=== PATIENT | female | born 1985 | race Caucasian/White ===

== ENCOUNTER 2018-07-01 09:05 | Day surgery (SDC) | payer BC ==
[~2018-07-01 09:05] MED LIST: Albuterol 0.083% 2.5 MG/3 ML Neb Soln NEB ONE; Lactated Ringers 1,000 ML IV SCH; Lidocaine 1% 6 ML ONE; Lidocaine 1%/Sod Bicarbonate in NS 8.4% 1 ML Syringe IDERM PRN; Propofol 200 MG/20 ML SDV ONE; Sodium Chloride 0.9% 10 ML Syringe FLUSH PRN; fentaNYL 100 MCG/2 ML SDV ONE
--- NOTE | 2018-07-01 09:56 | PCM.PREANE ---
Preanesthetic Assessment - Anesthesia/Transfusion/Family Hx Anesthesia History: No Prior Anesthesia Family History of Anesthesia Reaction: No Transfusion History: No Prior Transfusion(s) - Review of Systems General: No Symptoms Pulmonary: No Symptoms Cardiovascular: Dyspnea on Exertion Gastrointestinal: No Symptoms Neurological: Seizure (May 2017) Other: Reports: Thyroid Problems (hypothyroid) - Physical Assessment NPO Status Date: 06/30/18 NPO Status Time: 00:00 Pulse: 88 O2 Sat by Pulse Oximetry: 95 Respiratory Rate: 19 Blood Pressure: 139/70 Temperature: 37.5 C Height: 1.65 m Weight: 123.1 kg ASA Class: 3 Mental Status: Alert & Oriented x3 Airway Class: Mallampati = 3 Dentition: Reports: Normal Dentition Thyro-Mental Finger Breadths: 2 Mouth Opening Finger Breadths: 2 ROM/Head Extension: Full Lungs: Clear to Auscultation, Normal Respiratory Effort Cardiovascular: Regular Rate, Regular Rhythm, No Murmurs - Allergies Allergies/Adverse Reactions: Allergies Allergy/AdvReac Type Severity Reaction Status Date / Time ondansetron [From Zofran] Allergy Headache Verified 06/30/18 12:27 strawberry Allergy Anaphylactic Verified 06/30/18 12:27 Shock - Blood Blood Available: No Product(s) Available: None - Anesthesia Plan Pre-Op Medication Ordered: None - Acknowledgements Anesthesia Type Planned: MAC Pt an Appropriate Candidate for the Planned Anesthesia: Yes Alternatives and Risks of Anesthesia Discussed w Pt/Guardian: Yes Pt/Guardian Understands and Agrees with Anesthesia Plan: Yes PreAnesthesia Questionnaire HEENT History: Reports: None Cardiovascular History: Reports: Hypertension, Other (See Below) Other Cardiovascular History: Fluid retention, hypokalemia, hypoalbuminemia Respiratory History: Reports: Asthma, Sleep Apnea, Other (See Below) Other Respiratory History: Patient uses CPAP Gastrointestinal History: Reports: Chronic Constipation, GERD, Other (See Below) Other Gastrointestinal History: Abdominal wall mass Genitourinary History: Reports: Renal Calculus (in the past), Other (See Below) Other Genitourinary History: Proteinuria Other OB/BYN History: Amenorrhea, decreased libido Musculoskeletal History: Reports: None Neurological History: Reports: Other (See Below) Other Neuro History: Arnold-Chiari malformation (type I), Posterior reversible encephalopathy syndrome (PRES), Empty sella Psychiatric History: Reports: Anxiety, Depression Endocrine/Metabolic History: Reports: Hypothyroidism, Vitamin D Deficiency Other Endocrine/Metabolic History: Generalized weakness, fatigue Hematologic History: Reports: Anemia Other Immunologic History: CREST syndrome (Calcinosis, Raynaud's phenomenon, Esophageal dysfunction, Sclerodactyly,Telangiectasia) Oncologic (Cancer) History: Reports: None Dermatologic History: Reports: Other (See Below) Other Dermatologic History: Folliculitis - Past Surgical History Head Surgeries/Procedures: Reports: None HEENT Surgical History: Reports: Adenoidectomy, Naso-Sinus Surgery, Tonsillectomy Cardiovascular Surgical History: Reports: None Respiratory Surgical History: Reports: None GI Surgical History: Reports: None Female Surgical History: Reports: Other (See Below) Other Female Surgeries/Procedures: Laparoscopic ovarian cystectomy Endocrine Surgical History: Reports: None Neurological Surgical History: Reports: None Musculoskeletal Surgical History: Reports: Arthroscopic Knee - SUBSTANCE USE Smoking Status *Q: Never Smoker Tobacco Use Within Last Twelve Months: No Second Hand Smoke Exposure: No Days Per Week of Alcohol Use: 1 Number of Drinks Per Day: 0 Total Drinks Per Week: 0 Recreational Drug Use History: No - HOME MEDS Home Medications: Home Meds Albuterol Sulfate [Proair Respiclick] 1 - 2 puff IH Q4H PRN 06/30/18 [History] Albuterol [Proventil Neb Soln] 2.5 mg INH Q4H PRN 06/30/18 [History] Aspirin 325 mg PO DAILY 06/30/18 [History] Benzaclin 1 applic TOP BEDTIME 06/30/18 [History] Cholecalciferol (Vitamin D3) [Vitamin D3] 5,000 unit PO DAILY 06/30/18 [History] Diltiazem HCl [Cardizem Cd] 300 mg PO DAILY 06/30/18 [History] Ergocalciferol (Vitamin D2) [Vitamin D2] 50,000 unit PO ASDIRECTED 06/30/18 [ History] FLUoxetine HCl [Prozac] 40 mg PO DAILY 06/30/18 [History] Fluticasone/Salmeterol [Advair 250-50 Diskus] 1 puff IH BID 06/30/18 [History] Levothyroxine [Synthroid] 88 mcg PO DAILY 06/30/18 [History] Lisinopril 20 mg PO DAILY 06/30/18 [History] Montelukast [Singulair] 10 mg PO BEDTIME 06/30/18 [History] Mupirocin Oint [Bactroban Oint] 1 applic TOP DAILY 06/30/18 [History] Mycophenolate Mofetil [Cellcept] 500 mg PO BID 06/30/18 [History] Omeprazole Magnesium [Prilosec Otc] 40 mg PO DAILY 06/30/18 [History] Polyethylene Glycol 3350 [MiraLAX] 17 gm PO DAILY PRN 06/30/18 [History] Potassium Chloride 20 - 40 meq PO DAILY 06/30/18 [History] atorvaSTATin Calcium [Lipitor] 20 mg PO DAILY 06/30/18 [History] hydrALAZINE [Apresoline] 25 mg PO BID 06/30/18 [History] valACYclovir [Valtrex] 1,000 mg PO BID 06/30/18 [History] - CURRENT (IN HOUSE) MEDS Current Meds: Current Medications Lactated Ringer's (Ringers, Lactated) 1,000 mls @ 125 mls/hr IV ASDIRECTED CHARLENE Stop: 07/01/18 23:00 Lidocaine/Sodium Bicarbonate (Buffered Lidocaine 1% In Ns 8.4%) 0.25 ml IDERM ONETIME PRN PRN Reason: Prior to IV Start Stop: 07/01/18 18:00 Sodium Chloride (Saline Flush) 10 ml FLUSH ASDIRECTED PRN PRN Reason: Keep Vein Open Stop: 07/01/18 18:00 Discontinued Medications Albuterol (Proventil Neb Soln) 2.5 mg NEB ONETIME ONE Stop: 07/01/18 08:01 Fentanyl (Sublimaze) Confirm Administered Dose 100 mcg .ROUTE .STK-MED ONE Stop: 07/01/18 07:17 Lidocaine HCl (Xylocaine-Mpf 1%) Confirm Administered Dose 6 mls @ as directed .ROUTE .STK-MED ONE Stop: 07/01/18 07:17 Propofol (Diprivan 20 Ml) Confirm Administered Dose 200 mg .ROUTE .STK-MED ONE Stop: 07/01/18 07:17
[2018-07-01] MEDS ORDERED: Midazolam 1 MG/ML 2 ML SDV ONE ×2 (10:34→11:24)
[2018-07-01] MEDS ORDERED: Lactated Ringers 1,000 ML ONE (11:26)
[2018-07-01] MEDS ORDERED: Propofol 200 MG/20 ML SDV ONE ×3 (11:37→12:11)
[2018-07-01] MEDS ORDERED: fentaNYL 100 MCG/2 ML SDV ONE (11:42)
--- NOTE | 2018-07-01 12:31 | PCM48HPAN ---
Post Anesthesia Note - EVALUATION WITHIN 48HRS OF ANESTHETIC Vital Signs in Normal Range: Yes Patient Participated in Evaluation: Yes Respiratory Function Stable: Yes Airway Patent: Yes Cardiovascular Function Stable: Yes Hydration Status Stable: Yes Pain Control Satisfactory: Yes Nausea and Vomiting Control Satisfactory: Yes Mental Status Recovered: Yes
--- NOTE | 2018-07-01 12:35 | PCM.OPNOTE ---
- General Post-Op/Procedure Note Date of Surgery/Procedure: 07/01/18 Operative Procedure(s): EGD with biopsy and colonoscopy with biopsy Findings: Esophagitis, gastritis and polypoid colon mucosa Pre Op Diagnosis: anemia Post-Op Diagnosis: same Anesthesia Technique: REINA Primary Surgeon: Ashley Quinones Anesthesia Provider: Elva Delatorre Pathology: 1. gastric antrum for H. pylori 2. GE junction biopsies in 4 quadrants 3. Sigmoid colon mucosa 4. Rectal mucosa Fluid Replacement, Intraop: 1,400 EBL in mLs: 0 Complications: none apparent Condition: Good
--- NOTE | 2018-07-01 12:47 | PCM.PRNOTE ---
- Free Text/Narrative Note: Operative Report Date of Procedure: July 01, 2018 Pre Op Diagnosis: . Anemia Post-Op Diagnosis: . Same Operative Procedures: 1. EGD with biopsy 2. Colonoscopy to the cecum with biopsy Primary Surgeon: Ashley Quinones MD Anesthesia Provider: Margret Joy CRNA Anesthesia Technique: MAC IV Fluid Replacement, Intraop: 1400 cc crystalloid Output, Urine Amount: 0cc EBL in mLs: 0cc Findings: Esophagitis with gastritis, mildly irregular GE junction. Polypoid appearing mucosa in the sigmoid colon and rectum Specimens: 1. gastric antrum for H. pylori 2. GE junction biopsies in 4 quadrants 3. Sigmoid colon mucosa 4. Rectal mucosa Drain/Tubes: None Indication: The patient is a 33-year-old lady who presented to the clinic with anemia. The patient was consented for a diagnostic EGD and colonoscopy. Risks of bleeding, and perforation were discussed, and the patient agreed to the risks and wished to proceed. Description of the procedure: The patient was taken back to the endoscopy suite, and placed in the left lateral decubitus position. Local anesthetic to the oropharynx was administered , and a bite block was placed. The patient was sedated with MAC anesthesia. The Olympus video endoscope was inserted into the oropharynx and guided under direct vision into the esophagus, stomach, and duodenum. The gastric antrum was inspected and cold biopsy forceps were used to take tissue samples for H. pylori. The duodenal bulb was unremarkable, the scope would not easily pass into the second portion of the duodenum. The scope was withdrawn to the stomach and retroflexed. There was some increased fluid, but no food or secretions in the upper gastrointestinal tract. The mucosa appeared somewhat pale. No erosions or ulcers were noted. The gastric antrum was erythematous and mildly edematous consistent with gastritis. The scope was withdrawn to the esophagus. A this point we did not note a hiatal hernia. The Z-line and gastroesophageal junction were located at about 38 cm. . Questionable Barretts esophagus changes were noted as the GE junction was mildly irregular. This could also be consistent with esophagitis. Cold biopsy forceps. A used to take biopsies of the GE junction in 4 quadrants. The endoscope was then withdrawn. Next, anorectal examination was performed. No lesions, masses or hemorrhoids were noted externally or on palpation. The scope was placed into the rectum and advanced to cecum. Upon reaching the cecum, and the patients cecum was entered. There was minimal tortuosity of the colon. The ileocecal valve was well visualized, however and the appendiceal orifice was not identified from poor prep, as well as patient anatomy. Despite washing and suctioning, the cecum could not be completely cleared. At this point, the scope was slowly withdrawn, paying attention to the mucosa. The patient had adequate bowel prep , 80 % of the mucosa was visible. A large stool ball was noted in the descending colon. There were areas of polypoid mucosa in the sigmoid colon and rectum. Biopsies were taken with cold biopsy forceps. There was no evidence of bleeding or stigmata of recent bleeding. In the rectum, scope was retroflexed and some hemorrhoidal tissue was noted. The scope was placed back in the lumen and excess air was aspirated. The scope was removed. The patient tolerated the procedure very well. Complications: None apparent Condition: The patient was transported to PACU in stable condition. Ashley Quinones MD General Surgery
== END 2018-07-01 13:40 | disposition home or self-care (01) ==
LOC: JD.SDS 09:05
PROVIDERS: ATTEND Surgery
DX: D64.9 Anemia, unspecified (principal); K29.50 Unspecified chronic gastritis without bleeding; K20.9 Esophagitis, unspecified; K64.9 Unspecified hemorrhoids; I11.0 Hypertensive heart disease with heart failure; I50.9 Heart failure, unspecified; J44.9 Chronic obstructive pulmonary disease, unspecified; F32.9 Major depressive disorder, single episode, unspecified; K21.9 Gastro-esophageal reflux disease without esophagitis; E03.9 Hypothyroidism, unspecified; G47.33 Obstructive sleep apnea (adult) (pediatric); Z99.89 Dependence on other enabling machines and devices; G93.5 Compression of brain; Z86.73 Personal history of transient ischemic attack (TIA), and cerebral infarction without residual deficits; Z79.51 Long term (current) use of inhaled steroids; Z79.82 Long term (current) use of aspirin; Z79.899 Other long term (current) drug therapy; Z91.018 Allergy to other foods; Z88.8 Allergy status to other drugs, medicaments and biological substances
CPT/HCPCS: 43239; 45380; 94640; J2250; J2704; J3010; J7120; J2001

== ENCOUNTER 2020-05-02 10:31 | Emergency (ER) | payer BC ==
[2020-05-02] MEDS ORDERED: Sodium Chloride 0.9% 10 ML Syringe FLUSH PRN (10:40)
[2020-05-02] MEDS ORDERED: Sodium Chloride 0.9% 1,000 ML IV SCH (10:45)
--- NOTE | 2020-05-02 12:20 | EDM.PDOC ---
ED HPI GENERAL MEDICAL PROBLEM - General Chief Complaint: Cardiovascular Problem Stated Complaint: [facility] Time Seen by Provider: 05/02/20 10:35 Source of Information: Reports: Patient, EMS History Limitations: Reports: No Limitations - History of Present Illness INITIAL COMMENTS - FREE TEXT/NARRATIVE: The patient presents by [facility] for runs of V-tach. The patient was COVID positive on 04/08/20. She got worse on 04/11/20 and was seen at [facility] and she was sent to [facility] for acute hypoxic respiratory failure and acute CHF. Her room air sat was 83%. She had pneumonia and a small PE. She was started on eliquis. She was treated with remdesiver, dexamethasone and convalescent plasma. The did an echo and it showed an EF of 20-24%. She was discharged on the with a life vest defibrilator. She said the past few days it has alerted her that it was going to shock her. It happened a couple times yesterday and 4 to 5 times this morning. She had a 7 second run of V-tach when she first got here. Her vest was off and before we could do anything she converted. During the time that happened her BP went down into the 70s. She h as no fever, chills, cough, chest pain, shortness of breath, abdominal pain, nausea or vomiting. She has generalized weakness. Onset: Gradual Duration: Day(s): Severity: Moderate Improves with: Reports: None Worsens with: Reports: None Associated Symptoms: Reports: No Other Symptoms Treatments GAS TREATER: Reports: IV/IO - Related Data Allergies Allergy/AdvReac Type Severity Reaction Status Date / Time fentanyl Allergy Severe Itching Verified 05/02/20 10:58 strawberry Allergy Severe Anaphylactic Verified 05/02/20 10:58 Shock ondansetron [From Zofran] AdvReac Severe Headache Verified 05/02/20 10:58 Home Meds: Home Meds Albuterol Sulfate [Proair Respiclick] 1 - 2 puff IH Q4H PRN 06/30/18 [History] Albuterol [Proventil Neb Soln] 3 ml INH Q4H PRN 06/30/18 [History] Ergocalciferol (Vitamin D2) [Vitamin D2] 50,000 unit PO MOTH 06/30/18 [History] Levothyroxine [Synthroid] 88 mcg PO DAILY 06/30/18 [History] Lisinopril 10 mg PO DAILY 06/30/18 [History] Montelukast [Singulair] 10 mg PO BEDTIME 06/30/18 [History] Potassium Chloride 10 meq PO DAILY 06/30/18 [History] hydrALAZINE [Apresoline] 25 mg PO BID 06/30/18 [History] Apixaban [Eliquis] 5 mg PO BID 05/02/20 [History] Cyclobenzaprine [Flexeril] 10 mg PO TID PRN 05/02/20 [History] Furosemide [Lasix] 40 mg PO DAILY 05/02/20 [History] Pantoprazole [ProTONIX] 40 mg PO BID 05/02/20 [History] Spironolactone [Aldactone] 25 mg PO DAILY 05/02/20 [History] Sucralfate [Carafate] 1 gm PO BEDTIME 05/02/20 [History] amLODIPine [Norvasc] 5 mg PO DAILY 05/02/20 [History] atorvaSTATin [Lipitor] 20 mg PO BEDTIME 05/02/20 [History] carvediloL [Carvedilol] 3.125 mg PO BID 05/02/20 [History] Past Medical History HEENT History: Reports: None Cardiovascular History: Reports: Heart Failure, Hypertension Other Cardiovascular History: Fluid retention, hypokalemia, hypoalbuminemia Respiratory History: Reports: Asthma, Sleep Apnea, Other (See Below) Other Respiratory History: pulmonary hypertensionb Gastrointestinal History: Reports: Chronic Constipation, GERD Other Gastrointestinal History: Abdominal wall mass Genitourinary History: Reports: Renal Calculus Other Genitourinary History: Proteinuria Other GLOBAL MARKETING SPECIALIST History: Amenorrhea, decreased libido Musculoskeletal History: Reports: None Neurological History: Reports: CVA, Other (See Below) Other Neuro History: Arnold-Chiari malformation (type I), Posterior reversible encephalopathy syndrome (PRES), Empty sella Psychiatric History: Reports: Anxiety, Depression Endocrine/Metabolic History: Reports: Hypothyroidism, Vitamin D Deficiency Other Endocrine/Metabolic History: Generalized weakness, fatigue Hematologic History: Reports: Iron Deficiency Immunologic History: Reports: Other (See Below) Other Immunologic History: CREST syndrome (Calcinosis, Raynaud's phenomenon, Esophageal dysfunction, Sclerodactyly,Telangiectasia) Oncologic (Cancer) History: Reports: None Dermatologic History: Reports: Scleroderma Other Dermatologic History: Folliculitis - Infectious Disease History Infectious Disease History: Reports: Novel Coronavirus - Past Surgical History HEENT Surgical History: Reports: Adenoidectomy, Naso-Sinus Surgery, Tonsillectomy Cardiovascular Surgical History: Reports: None Female Surgical History: Reports: Other (See Below) Other Female Surgeries/Procedures: Laparoscopic ovarian cystectomy Musculoskeletal Surgical History: Reports: Arthroscopic Knee Social & Family History - Tobacco Use Tobacco Use Status *Q: Never Tobacco User - Caffeine Use Caffeine Use: Reports: Tea - Recreational Drug Use Recreational Drug Use: No ED ROS GENERAL - Review of Systems Review Of Systems: See Below Constitutional: Reports: Malaise, Weakness, Fatigue. Denies: Fever, Chills HEENT: Reports: No Symptoms Respiratory: Reports: No Symptoms Cardiovascular: Reports: Lightheadedness, Palpitations. Denies: Chest Pain Endocrine: Reports: No Symptoms GI/Abdominal: Reports: No Symptoms : Reports: No Symptoms Musculoskeletal: Reports: No Symptoms ED EXAM, GENERAL - Physical Exam Exam: See Below Exam Limited By: No Limitations General Appearance: Alert, No Apparent Distress Ears: Normal External Exam Nose: Normal Inspection Head: Atraumatic, Normocephalic Neck: Normal Inspection Respiratory/Chest: No Respiratory Distress, Lungs Clear, Normal Breath Sounds Cardiovascular: Regular Rate, Rhythm, No Edema, No Murmur GI/Abdominal: Soft, Non-Tender, No Organomegaly, No Mass Back Exam: Normal Inspection Extremities: Normal Inspection #1 Interpretation EKG Date: 05/02/20 Time: 11:15 Rhythm: NSR Rate (Beats/Min): 95 [place]: Normal P-Wave: Present QRS: Wide ST-T: Normal QT: Normal EKG Interpretation Comments: PVCs Course - Vital Signs Last Recorded V/S: Last Vital Signs Temp 98.7 F 05/02/20 10:52 Pulse 97 05/02/20 10:52 Resp 16 05/02/20 10:52 BP 107/68 05/02/20 10:52 Pulse Ox 97 05/02/20 10:52 - Orders/Labs/Meds Orders: Active Orders 24 hr Category Date Time Status Cardiac Monitoring [RC] . DIRECTED Care 05/02/20 10:40 Active EKG Documentation Completion [RC] STAT Care 05/02/20 10:41 Active Oxygen Therapy [RC] PRN Care 05/02/20 10:40 Active Peripheral IV Care [RC] . DIRECTED Care 05/02/20 10:41 Active Sodium Chloride 0.9% [Normal Saline] 1,000 ml Med 05/02/20 10:45 Active IV .BOLUS Sodium Chloride 0.9% [Saline Flush] Med 05/02/20 10:40 Active 10 ml FLUSH ASDIRECTED PRN Peripheral IV Insertion Adult [OM.PC] Stat Oth 05/02/20 10:40 Ordered Medication Orders Sodium Chloride (Normal Saline) 1,000 mls @ 1,000 mls/hr IV .BOLUS CHARLENE Last Admin: 05/02/20 11:23 Dose: 1,000 mls/hr Documented by: AUDREY Sodium Chloride (Saline Flush) 10 ml FLUSH ASDIRECTED PRN PRN Reason: Keep Vein Open Last Admin: 05/02/20 11:23 Dose: 10 ml Documented by: AUDREY Labs: Laboratory Tests 05/02/20 05/02/20 05/02/20 Range/Units 11:11 11:11 11:11 WBC 6.06 (3.98-10.04) K/mm3 RBC 3.96 L (3.98-5.22) M/mm3 Hgb 11.1 L (11.2-15.7) gm/dl Hct 36.8 (34.1-44.9) % MCV 92.9 (79.4-94.8) fl MCH 28.0 (25.6-32.2) pg MCHC 30.2 L (32.2-35.5) g/dl RDW Std Deviation 63.5 H (36.4-46.3) fL Plt Count 304 (182-369) K/mm3 MPV 9.5 (9.4-12.3) fl Neut % (Auto) 75.5 H (34.0-71.1) % Lymph % (Auto) 15.3 L (19.3-51.7) % Bond % (Auto) 6.8 (4.7-12.5) % Eos % (Auto) 2.0 (0.7-5.8) Baso % (Auto) 0.2 (0.1-1.2) % Neut # (Auto) 4.58 (1.56-6.13) K/mm3 Lymph # (Auto) 0.93 L (1.18-3.74) K/mm3 Bond # (Auto) 0.41 H (0.24-0.36) K/mm3 Eos # (Auto) 0.12 (0.04-0.36) K/mm3 Baso # (Auto) 0.01 (0.01-0.08) K/mm3 PT 11.9 (9.7-12.0) SECONDS INR 1.11 APTT 29.6 (21.7-31.4) SECONDS Sodium 138 (136-145) mEq/L Potassium 4.2 (3.5-5.1) mEq/L Chloride 101 (98-107) mEq/L Carbon Dioxide 28 (21-32) mEq/L Anion Gap 13.2 (5-15) BUN 16 (7-18) mg/dL Creatinine 0.6 (0.55-1.02) mg/dL Est Cr Clr Drug Dosing 118.88 mL/min Estimated GFR (MDRD) > 60 (>60) mL/min BUN/Creatinine Ratio 26.7 H (14-18) Glucose 99 (74-106) mg/dL Lactic Acid (0.4-2.0) mmol/L Calcium 9.3 (8.5-10.1) mg/dL Magnesium (1.8-2.4) mg/dl Total Bilirubin 0.8 (0.2-1.0) mg/dL AST 18 (15-37) U/L ALT 19 (14-59) U/L Alkaline Phosphatase 54 (46-116) U/L Troponin I 0.050 (0.00-0.056) ng/mL C-Reactive Protein 2.5 H* (<1.0) mg/dL NT-Pro-B Natriuret Pep (0-125) pg/mL Total Protein 7.2 (6.4-8.2) g/dl Albumin 3.1 L (3.4-5.0) g/dl Globulin 4.1 gm/dL Albumin/Globulin Ratio 0.8 L (1-2) SARS-CoV-2 RNA (SKIP) (NEGATIVE) 05/02/20 05/02/20 05/02/20 Range/Units 11:11 11:11 11:11 WBC (3.98-10.04) K/mm3 RBC (3.98-5.22) M/mm3 Hgb (11.2-15.7) gm/dl Hct (34.1-44.9) % MCV (79.4-94.8) fl MCH (25.6-32.2) pg MCHC (32.2-35.5) g/dl RDW Std Deviation (36.4-46.3) fL Plt Count (182-369) K/mm3 MPV (9.4-12.3) fl Neut % (Auto) (34.0-71.1) % Lymph % (Auto) (19.3-51.7) % Bond % (Auto) (4.7-12.5) % Eos % (Auto) (0.7-5.8) Baso % (Auto) (0.1-1.2) % Neut # (Auto) (1.56-6.13) K/mm3 Lymph # (Auto) (1.18-3.74) K/mm3 Bond # (Auto) (0.24-0.36) K/mm3 Eos # (Auto) (0.04-0.36) K/mm3 Baso # (Auto) (0.01-0.08) K/mm3 PT (9.7-12.0) SECONDS INR APTT (21.7-31.4) SECONDS Sodium (136-145) mEq/L Potassium (3.5-5.1) mEq/L Chloride (98-107) mEq/L Carbon Dioxide (21-32) mEq/L Anion Gap (5-15) BUN (7-18) mg/dL Creatinine (0.55-1.02) mg/dL Est Cr Clr Drug Dosing mL/min Estimated GFR (MDRD) (>60) mL/min BUN/Creatinine Ratio (14-18) Glucose (74-106) mg/dL Lactic Acid 1.9 (0.4-2.0) mmol/L Calcium (8.5-10.1) mg/dL Magnesium 1.7 L (1.8-2.4) mg/dl Total Bilirubin (0.2-1.0) mg/dL AST (15-37) U/L ALT (14-59) U/L Alkaline Phosphatase (46-116) U/L Troponin I (0.00-0.056) ng/mL C-Reactive Protein (<1.0) mg/dL NT-Pro-B Natriuret Pep 1540 H (0-125) pg/mL Total Protein (6.4-8.2) g/dl Albumin (3.4-5.0) g/dl Globulin gm/dL Albumin/Globulin Ratio (1-2) SARS-CoV-2 RNA (SKIP) (NEGATIVE) 05/02/20 Range/Units 12:50 WBC (3.98-10.04) K/mm3 RBC (3.98-5.22) M/mm3 Hgb (11.2-15.7) gm/dl Hct (34.1-44.9) % MCV (79.4-94.8) fl MCH (25.6-32.2) pg MCHC (32.2-35.5) g/dl RDW Std Deviation (36.4-46.3) fL Plt Count (182-369) K/mm3 MPV (9.4-12.3) fl Neut % (Auto) (34.0-71.1) % Lymph % (Auto) (19.3-51.7) % Bond % (Auto) (4.7-12.5) % Eos % (Auto) (0.7-5.8) Baso % (Auto) (0.1-1.2) % Neut # (Auto) (1.56-6.13) K/mm3 Lymph # (Auto) (1.18-3.74) K/mm3 Bond # (Auto) (0.24-0.36) K/mm3 Eos # (Auto) (0.04-0.36) K/mm3 Baso # (Auto) (0.01-0.08) K/mm3 PT (9.7-12.0) SECONDS INR APTT (21.7-31.4) SECONDS Sodium (136-145) mEq/L Potassium (3.5-5.1) mEq/L Chloride (98-107) mEq/L Carbon Dioxide (21-32) mEq/L Anion Gap (5-15) BUN (7-18) mg/dL Creatinine (0.55-1.02) mg/dL Est Cr Clr Drug Dosing mL/min Estimated GFR (MDRD) (>60) mL/min BUN/Creatinine Ratio (14-18) Glucose (74-106) mg/dL Lactic Acid (0.4-2.0) mmol/L Calcium (8.5-10.1) mg/dL Magnesium (1.8-2.4) mg/dl Total Bilirubin (0.2-1.0) mg/dL AST (15-37) U/L ALT (14-59) U/L Alkaline Phosphatase (46-116) U/L Troponin I (0.00-0.056) ng/mL C-Reactive Protein (<1.0) mg/dL NT-Pro-B Natriuret Pep (0-125) pg/mL Total Protein (6.4-8.2) g/dl Albumin (3.4-5.0) g/dl Globulin gm/dL Albumin/Globulin Ratio (1-2) SARS-CoV-2 RNA (SKIP) Positive H (NEGATIVE) Meds: Medications Generic Name Dose Route Start Last Admin Trade Name Freq PRN Reason Stop Dose Admin Sodium Chloride 1,000 mls @ 1,000 mls/hr 05/02/20 10:45 05/02/20 11:23 Normal Saline IV 1,000 mls/hr .BOLUS CHARLENE Administration Sodium Chloride 10 ml 05/02/20 10:40 05/02/20 11:23 Saline Flush FLUSH 10 ml ASDIRECTED PRN Administration Keep Vein Open - Re-Assessments/Exams Free Text/Narrative Re-Assessment/Exam: 05/02/20 13:57 I ordered an IV NS 1L bolus, EKG, CXR, and labs. Her EKG shows a NSR with PVCs and nothing acute. Her CXR shows atelectatic changes are noted within the right lung base. Her Hgb was 11.1. Her PT and PTT are negative. Her CMP is negative. Her troponin is negative. Her CRP is elevated at 2.5. Her BNP was 1540. I called [facility] in [place] and talked with Dr Arellano and he recommended she come down for an implantable defibrillator. They do not have a COVID bed so they wanted a COVID test done. I am waiting on that now. 05/02/20 15:34 The COVID 19 test is negative. I called back and they have no beds. I called [facility] and talked with Dr Ridley the healthcare business analyst patient observation assistant and Dr Mahajan the hospitalist and he accepted the patient. Departure - Departure Time of Disposition: 15:35 Disposition: DC/Tfer to [facility] 02 Reason for Transfer *Q: Other Clinical Impression: Ventricular tachycardia, COVID-19 CHF (congestive heart failure) Qualifiers: Heart failure type: other Qualified Code(s): I50.9 - Heart failure, unspecified Referrals: Kimber Humphrey MD [Primary Care Provider] - Forms: ED Department Discharge Sepsis Event Note (ED) - Evaluation Sepsis Screening Result: No Definite Risk - Focused Exam Vital Signs: Vital Signs Temp Pulse Resp BP Pulse Ox 05/02/20 10:52 98.7 F 97 16 107/68 97 - My Orders Last 24 Hours: My Active Orders 05/02/20 10:40 Cardiac Monitoring [RC] . DIRECTED Oxygen Therapy [RC] PRN Sodium Chloride 0.9% [Saline Flush] 10 ml FLUSH ASDIRECTED PRN Peripheral IV Insertion Adult [OM.PC] Stat 05/02/20 10:41 EKG Documentation Completion [RC] STAT Peripheral IV Care [RC] . DIRECTED 05/02/20 10:45 Sodium Chloride 0.9% [Normal Saline] 1,000 ml IV .BOLUS - Assessment/Plan Last 24 Hours: My Active Orders 05/02/20 10:40 Cardiac Monitoring [RC] . DIRECTED Oxygen Therapy [RC] PRN Sodium Chloride 0.9% [Saline Flush] 10 ml FLUSH ASDIRECTED PRN Peripheral IV Insertion Adult [OM.PC] Stat 05/02/20 10:41 EKG Documentation Completion [RC] STAT Peripheral IV Care [RC] . DIRECTED 05/02/20 10:45 Sodium Chloride 0.9% [Normal Saline] 1,000 ml IV .BOLUS
--- NOTE | 2020-05-02 14:26 | CR ---
PROCEDURE INFORMATION: Exam: XR Chest, 1 View Exam date and time: 05/02/2020 10:28 AM Age: 35 years old Clinical indication: Chest pain; Type not specified TECHNIQUE: Imaging protocol: XR of the chest Views: 1 view. COMPARISON: DX Abdomen Series w Chest 1V 10/22/2017 3:52 PM FINDINGS: Lungs: Atelectatic changes are noted within the right lung base. Pleural space: Mild blunting of the right costophrenic angle. Heart/Mediastinum: Unremarkable. No cardiomegaly. Diaphragm: There is nonspecific elevation of the right hemidiaphragm. Bones/joints: Unremarkable. IMPRESSION: Atelectatic changes are noted within the right lung base. Thank you for allowing us to participate in the care of your patient. Dictated and Authenticated by: Tomy Chambers DO 05/02/2020 2:06 PM Central Time ([place] & [place]) [facility]
== END 2020-05-02 17:35 ==
LOC: JD.ED 10:31
DX: U07.1 COVID-19 (principal); I47.2 Ventricular tachycardia; I11.0 Hypertensive heart disease with heart failure; I50.9 Heart failure, unspecified; K21.9 Gastro-esophageal reflux disease without esophagitis; F41.9 Anxiety disorder, unspecified; F32.9 Major depressive disorder, single episode, unspecified; E03.9 Hypothyroidism, unspecified; J45.909 Unspecified asthma, uncomplicated; Z88.4 Allergy status to anesthetic agent; Z91.018 Allergy to other foods; Z79.899 Other long term (current) drug therapy; Z79.01 Long term (current) use of anticoagulants; Z86.73 Personal history of transient ischemic attack (TIA), and cerebral infarction without residual deficits; Z20.828 Contact with and (suspected) exposure to other viral communicable diseases
CPT/HCPCS: 36415; 71045; 80053; 83605; 83735; 83880; 84484; 85025; 85610; 85730; 86140; 87635; 93005; 99285; J7030; 93010; 99284; U0002